=== PATIENT | female | born 1965 | race Two or more races ===

== ENCOUNTER 2021-04-10 14:34 | Emergency (ER) | payer OTHER ==
[~2021-04-10] VITALS: Ht 170.2 cm; Wt 131.1 kg
[2021-04-10] MEDS ORDERED: EFFEXOR XR75 MG PO (15:00)
[2021-04-10] MEDS ORDERED: MEDROXYPROGESTE10 MG PO (20:47)
== END 2021-04-10 21:01 | disposition home or self-care (01) ==
LOC: ER 14:34
DX: N93.9 Abnormal uterine and vaginal bleeding, unspecified (principal)